=== PATIENT | female | born 1980 | race Caucasian/White ===

== ENCOUNTER 2016-12-08 21:49 | Emergency (ER) | payer BC, OTHER ==
[~2016-12-08] VITALS: Ht 162.6 cm; Wt 69.9 kg
[~2016-12-08 21:49] MED LIST: PRENTAB26 PO
[2016-12-08 21:57] VITALS: TEMP 36.9; Ht 162.6 cm; Wt 69.9 kg
[2016-12-08] MEDS ORDERED: LIDOCAINE HCL 2% VISC SOLN 20 ML UDC PO STA (23:16)
[2016-12-08] MEDS ORDERED: ALUMINUM/MAGNESIUM SUSP 30 ML UDC PO STA (23:16)
[2016-12-09 00:12] LABS: BASO % 0.3 %; BASO ABS # 0.03 K/uL (0-0.2); COMPLETE YES; EOS % 0.4 %; HEMATOCRIT 39.2 % (37-47); IG% 0.2 %; LYMPH % 16.2 %; LYMPH ABS # 1.73 K/uL (1.2-3.4); MEAN CELL VOLUME 87.3 fL (80-100); MEAN CORPUSCULAR HEMOGLOBIN 30.1 pg (25-34); MEAN CORPUSCULAR HGB CONC 34.4 g/dl (32-36); MONO % 6.5 %; NEUT % 76.4 %; PLATELET COUNT 329 K/uL (130-400); RED BLOOD COUNT 4.49 M/uL (4.2-5.4)
[2016-12-09 00:32] LABS: ALT/SGPT 21 U/L (12-78); AST/SGOT 8 U/L (15-37); BLOOD UREA NITROGEN 22 mg/dl (7-18); BUN/CREATININE RATIO 28.5 (10-20); CALCIUM 9.1 mg/dl (8.5-10.1); CARBON DIOXIDE 27 mmol/L (21-32); CHLORIDE 107 mmol/L (98-107); CREATININE 0.77 mg/dl (0.60-1.20); GLUCOSE 99 mg/dl (70-99); POTASSIUM 4.2 mmol/L (3.5-5.1); SODIUM 143 mmol/L (136-145)
[2016-12-09 00:42] LABS: ALKALINE PHOSPHATASE 104 U/L (45-117); CKMB/CK RATIO 0.6 (0-3.0)
--- NOTE | 2016-12-09 01:26 | EMERGENCY ROOM VISIT NOTE ---
History Report prepared by Ramsey: Chandu Crenshaw Under the Supervision of: Dr. Jaime Combs D.O. First contact with patient: 23:13 Chief Complaint: CHEST PAIN Stated Complaint: CHEST TIGHNESS/PRESSUE,L BRANCH BUNDLE BLOCK HX History of Present Illness The patient is a 36 year old female who presents to the Emergency Room with complaints of waxing and waning chest pain beginning about 3 hours ago. She describes the pain as a tightness, and like a balloon inflating. She locates the pain in her central chest and notes it goes to the back of her mouth. The patient has a history of a left bundle branch block and notes her current symptoms are the same as when she had the left bundle branch block. She was here a few months ago with heart palpitations which were thought to be related to a panic attack. The patient denies any history of reflux, but reports a family history of heart disease in all of her grandparents. Source of History: patient Onset: 3 hours ago Position: chest Quality: other (tightness) Timing: waxes/wanes Note: The patient notes the pain radiates up to her mouth. Review of Systems See HPI for pertinent positives & negatives. A total of 10 systems reviewed and were otherwise negative. Past Medical & Surgical Medical Problems: (1) 26 weeks gestation of (2) Hemorrhoid prolapse (3) Left flank pain (4) Normal labor (5) Other specified complication, antepartum (6) (7) SYMPTOMATIC PALPITATIONS (8) Thrombosed external hemorrhoid Family History Diabetes mellitus Heart disease Hypertension Kidney stones Social History Smoking Status: Former Smoker Alcohol Use: occasionally Drug Use: none Marital Status: Current/Historical Medications Scheduled Multivit/Min/Iron/Fol Ac/Pren ( Vitamin), 1 TAB PO DAILY Allergies Coded Allergies: Ergocalciferol (Verified Allergy, Mild, RASH, 12/08/16) Physical Exam Vital Signs Date Time Temp Pulse Resp B/P Pulse Ox O2 Delivery O2 Flow Rate FiO2 12/09/16 00:00 81 16 100 Room Air 12/08/16 23:23 Room Air 12/08/16 22:00 98 Room Air 12/08/16 21:57 36.9 84 18 141/81 99 Room Air Physical Exam CONSTITUTIONAL/VITAL SIGNS: Reviewed / noted above. GENERAL: Non-toxic in appearance. INTEGUMENTARY: Warm, dry, and [place]. HEAD: Normocephalic. EYES: without scleral icterus or trauma. ENT/OROPHARYNX: clear and moist. LYMPHADENOPATHY/NECK: Is supple without lymphadenopathy or meningismus. RESPIRATORY: Lungs clear and equal. CARDIOVASCULAR: Regular rate and rhythm. GI/ABDOMEN: Soft and nontender. No organomegaly or pulsatile mass. No rebound or guarding. Normal bowel sounds. EXTREMITIES: Warm and well perfused. BACK: No CVA tenderness. NEUROLOGICAL: Intact without focal deficits. PSYCHIATRIC: normal affect. MUSCULOSKELETAL: Normally developed with good muscle tone. Medical Decision & Procedures ER Provider Diagnostic Interpretation: Chest x-ray:per my interpretation is negative for acute disease. No pneumothorax or pneumonia. Laboratory Results 12/08/16 23:37 Red Blood Count 4.49, Mean Corpuscular Volume 87.3, Mean Corpuscular Hemoglobin 30.1, Mean Corpuscular Hemoglobin Concent 34.4, Mean Platelet Volume 9.0, Neutrophils (%) (Auto) 76.4, Lymphocytes (%) (Auto) 16.2, Monocytes (%) (Auto) 6.5, Eosinophils (%) (Auto) 0.4, Basophils (%) (Auto) 0.3, Neutrophils # (Auto) 8.18, Lymphocytes # (Auto) 1.73, Monocytes # (Auto) 0.70, Eosinophils # (Auto) 0.04, Basophils # (Auto) 0.03 12/08/16 23:37 Test 12/08/16 23:37 White Blood Count 10.70 K/uL (4.8-10.8) Red Blood Count 4.49 M/uL (4.2-5.4) Hemoglobin 13.5 g/dL (12.0-16.0) Hematocrit 39.2 % (37-47) Mean Corpuscular Volume 87.3 fL (80-100) Mean Corpuscular Hemoglobin 30.1 pg (25-34) Mean Corpuscular Hemoglobin Concent 34.4 g/dl (32-36) Platelet Count 329 K/uL (130-400) Mean Platelet Volume 9.0 fL (7.4-10.4) Neutrophils (%) (Auto) 76.4 % Lymphocytes (%) (Auto) 16.2 % Monocytes (%) (Auto) 6.5 % Eosinophils (%) (Auto) 0.4 % Basophils (%) (Auto) 0.3 % Neutrophils # (Auto) 8.18 K/uL (1.4-6.5) Lymphocytes # (Auto) 1.73 K/uL (1.2-3.4) Monocytes # (Auto) 0.70 K/uL (0.11-0.59) Eosinophils # (Auto) 0.04 K/uL (0-0.5) Basophils # (Auto) 0.03 K/uL (0-0.2) RDW Standard Deviation 39.7 fL (36.4-46.3) RDW Coefficient of Variation 12.3 % (11.5-14.5) Immature Granulocyte % (Auto) 0.2 % Immature Granulocyte # (Auto) 0.02 K/uL (0.00-0.02) Anion Gap 9.0 mmol/L (3-11) Est Creatinine Clear Calc Drug Dose 98.8 ml/min Estimated GFR () 116.8 Estimated GFR (Non- 100.7 BUN/Creatinine Ratio 28.5 (10-20) Calcium Level 9.1 mg/dl (8.5-10.1) Total Bilirubin 0.2 mg/dl (0.2-1) Direct Bilirubin < 0.1 mg/dl (0-0.2) Aspartate Amino Transf (AST/SGOT) 8 U/L (15-37) Alanine Aminotransferase (ALT/SGPT) 21 U/L (12-78) Alkaline Phosphatase 104 U/L (45-117) Total Creatine Kinase 77 U/L (26-192) Creatine Kinase MB 0.5 ng/ml (0.5-3.6) Creatine Kinase MB Ratio 0.6 (0-3.0) Troponin I < 0.015 ng/ml (0-0.045) Total Protein 8.0 gm/dl (6.4-8.2) Albumin 4.0 gm/dl (3.4-5.0) Thyroid Stimulating Hormone (TSH) 1.380 uIu/ml (0.300-4.500) Laboratory results as stated above per my review. Medications Administered Medications (Trade) Dose Ordered Sig/Dianna Route Start Time Stop Time Status Last Admin Dose Admin Al Hydroxide/Mg Hydroxide (Maalox Susp) 30 ml NOW STAT PO 12/08/16 23:16 12/08/16 23:18 DC 12/08/16 23:42 30 ML Lidocaine HCl (Viscous Lidocaine 2% Soln) 10 ml NOW STAT PO 12/08/16 23:16 12/08/16 23:18 DC 12/08/16 23:42 10 ML ECG Indication: chest pain Rate (beats per minute): 80 Rhythm: normal sinus Findings: no acute ischemic change, no ectopy ED Course 2314: Previous medical records were reviewed. The patient was evaluated in room A12A. A complete history and physical examination was performed. 2316: Ordered Lidocaine HCl 10 ml PO, and Maalox Susp 30 ml PO. 0130: On reevaluation, the patient is doing well. I discussed the results and findings with the patient. She verbalized agreement of the treatment plan. The patient was discharged home. Medical Decision the differential was considered includes acute myocardial infarction, acute coronary syndrome, myocarditis, pericarditis, pericardial effusions /tamponad, esophageal perforation, thoracic aortic dissection, pulmonary embolism, pneumonia, pneumothorax, pancreatitis, shingles, acute cholecystitis, perforated abdominal viscus. This is a 36-year-old female who presents to the ED with a chief complaint of tightness in her chest. She states that it started around 8 PM tonight. She states that felt like a bubble in her chest and radiated into her neck. She states that she has had similar symptoms when she had a left bundle branch block. Because of her history of this, she was concerned and came to the ED for evaluation. She denied any associated symptoms. No recent illness, fevers or chills or shortness of breath. Her vital signs are normal. Her physical exam was normal. CBC, complete metabolic panel, TSH and troponin were normal. EKG shows a normal sinus rhythm at a rate of 80 without ectopy or acute injury or bundle branch block. A chest x-ray was negative for acute disease. The patient was told the results of the test. She is felt to be stable for discharge and outpatient follow up. Impression Primary Impression: Substernal precordial chest pain Scribe Attestation The scribe's documentation has been prepared under my direction and personally reviewed by me in its entirety. I confirm that the note above accurately reflects all work, treatment, procedures, and medical decision making performed by me. Departure Information Dispostion Home / Self-Care Referrals RV. Lozada MD (PCP) Patient Instructions My [facility] Additional Instructions Follow-up with your doctor for further care and evaluation in 1-5 days if symptoms persist. Return to the emergency department for worsening or new symptoms or any concerns. You have been examined and treated today on an emergency basis only. This is not a substitute for, or an effort to provide, complete comprehensive medical care. It is impossible to recognize and treat all injuries or illnesses in a single emergency department visit. It is therefore important that you follow up closely with your doctor. Call as soon as possible for an appointment.
[2016-12-09 01:39] VITALS: BP 135/79; PULSE 83; O2SAT 100
--- NOTE | 2016-12-09 06:34 | DIAGNOSTIC IMAGING REPORT ---
CHEST ONE VIEW PORTABLE CLINICAL HISTORY: Fever, sepsis COMPARISON STUDY: 08/28/2016 FINDINGS: The cardiac and mediastinal contours are normal. There is no evidence of focal pulmonary consolidation. There is no evidence of failure. No pleural effusions are visualized.[ IMPRESSION: No active disease in the chest. Electronically signed by: Jose Orta M.D. 12/09/2016 6:33 AM Dictated Date/Time: 12/09/2016 6:32 AM
== END 2016-12-09 01:40 | disposition home or self-care (01) ==
LOC: C.EDB 21:50 → C.EDA 12-09 01:40
DX: R07.2 Precordial pain (principal); Z83.3 Family history of diabetes mellitus; Z82.49 Family history of ischemic heart disease and other diseases of the circulatory system; Z87.891 Personal history of nicotine dependence

== ENCOUNTER → 2016-12-19 | Outpatient (CLI) | payer BC ==
--- NOTE | 2016-12-25 06:58 | CODING QUERY MEDICAL NECESSITY ---
CQSUPPORTING DIAGNOSIS NEEDED A supporting diagnosis is required for the test/procedure performed on this patient in order for us to be reimbursed by the patient's insurance. Please provide a supporting diagnosis for the following test/procedure listed below next to the test name along with your signature. *If there is no additional diagnosis for this patient that would support the following test/procedure please document that below next to the test/procedure. Test(s)/Procedure(s) that require a supporting diagnosis: DOS 12/19/16 VITAMIN B12 Provider Signature: Date: Thank you Yue Pineda [employer] Information [employer] Once completed, please kindly fax back to [phone] For questions please call [phone]
== END | disposition home or self-care (01) ==
LOC: C.LAB1850 11:38
PROVIDERS: ATTEND Internal Medicine
DX: E55.9 Vitamin D deficiency, unspecified (principal); R00.2 Palpitations; R53.83 Other fatigue

== ENCOUNTER 2017-12-25 08:39 | Emergency (ER) | payer BC ==
[~2017-12-25] VITALS: Ht 162.6 cm; Wt 68.6 kg
[2017-12-25 08:42] VITALS: TEMP 36.5; O2SAT 100; Ht 162.6 cm; Wt 68.6 kg
[2017-12-25 09:16] VITALS: O2SAT 97
[2017-12-25 09:22] LABS: BASO % 0.5 %; BASO ABS # 0.05 K/uL (0-0.2); HEMOGLOBIN 14.2 g/dL (12.0-16.0); IG# 0.02 K/uL (0.00-0.02); LYMPH % 22.9 %; LYMPH ABS # 2.34 K/uL (1.2-3.4); MEAN CELL VOLUME 88.7 fL (80-100); MEAN CORPUSCULAR HEMOGLOBIN 30.7 pg (25-34); MEAN CORPUSCULAR HGB CONC 34.6 g/dl (32-36); MEAN PLATELET VOLUME 8.9 fL (7.4-10.4); MONO % 7.5 %; MONO ABS # 0.76 K/uL (0.11-0.59); NEUT % 67.9 %; NEUT ABS # 6.93 K/uL (1.4-6.5); PLATELET COUNT 302 K/uL (130-400); RED CELL DISTRIBUTION WIDTH CV 12.3 % (11.5-14.5); RED CELL DISTRIBUTION WIDTH SD 39.7 fL (36.4-46.3)
[2017-12-25] MEDS ORDERED: ESCI1TAB6 PO (09:24)
[2017-12-25] MEDS ORDERED: MULTTAB58 PO (09:24)
--- NOTE | 2017-12-25 09:41 | DIAGNOSTIC IMAGING REPORT ---
CHEST ONE VIEW PORTABLE CLINICAL HISTORY: Atypical chest pain COMPARISON STUDY: 12/08/2016 FINDINGS: The cardiac and mediastinal contours are normal. There is no evidence of focal pulmonary consolidation. There is no evidence of failure. No pleural effusions are visualized.[ No pneumothorax is visualized. IMPRESSION: No active disease in the chest. Electronically signed by: Jose Orta M.D. 12/25/2017 9:40 AM Dictated Date/Time: 12/25/2017 9:40 AM
[2017-12-25 10:01] LABS: BLOOD UREA NITROGEN 20 mg/dl (7-18); CALCIUM 8.9 mg/dl (8.5-10.1); CARBON DIOXIDE 21 mmol/L (21-32); GLUCOSE 90 mg/dl (70-99)
[2017-12-25 10:10] LABS: POTASSIUM 4.2 mmol/L (3.5-5.1); SODIUM 138 mmol/L (136-145)
[2017-12-25 10:15] LABS: PHOSPHORUS 1.4 mg/dl (2.5-4.9)
[2017-12-25] MEDS ORDERED: POT PHOSPHATE MONOBASIC W/ SOD TAB PO STA (10:18)
[2017-12-25 10:39] VITALS: PULSE 94
[2017-12-25 11:02] VITALS: BP 136/79
[2017-12-25] MEDS ORDERED: KPH PO (11:18)
--- NOTE | 2017-12-25 11:18 | EMERGENCY ROOM VISIT NOTE ---
History Report prepared by Ramsey: David Mojica Under the Supervision of: Dr. Miguel Mckoy M.D. First contact with patient: 08:47 Chief Complaint: CARDIAC ASSESSMENT Stated Complaint: CARDIAC EVENT Nursing Triage Summary: patient states she work up this morning and after making kids breakfast she developed heart palpitations. "It was like my heart was skipping a beat." patient states she has anxiety and takes lexapro for anxiety. states she did not take lexapro today. patient states heart palpitations subsided enroute to ER but states once heart palpitations subside she began to hyperventilate, c/o numbness and tingling in arms, hands, legs and mouth History of Present Illness The patient is a 37 year old white female with a past medical history of hemorrhoid prolapse and kidney pain who presents to the Emergency Room with complaints of sudden onset chest palpitations that began at 0730, 1.5 hours ago. The patient states that "I could feel like my heart stopped beating for a second and then a really hard beat." She has felt this before, but notes that it normally its just a split second. This episode lasted for about an hour, but she feels like she is improving. She denies any chest pain or shortness of breath, but notes that she does have anxiety and panic attacks when these palpitations occur. She did feel like she began to hyperventilate following this episode. The patient did experience some numbness/tingling in her arms and legs, and subsequently lost the ability to move them. The patient notes that she does have a history of LBBB and follows with Dr. Gisselle mojica. 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 A total of ten systems were reviewed and were otherwise negative. Past Medical & Surgical Medical Problems: (1) 26 weeks gestation of (2) Hemorrhoid prolapse (3) Left flank pain (4) Normal labor (5) Other specified complication, antepartum (6) (7) SYMPTOMATIC PALPITATIONS (8) Thrombosed external hemorrhoid Family History Diabetes mellitus Heart disease Hypertension Kidney stones Social History Smoking Status: Never Smoker Alcohol Use: occasionally Drug Use: none Marital Status: Current/Historical Medications Scheduled Escitalopram Oxalate (Lexapro), 5 MG PO QAM Multiple Vitamin (Multivitamin), 1 TAB PO QPM Potassium Phosphate Monobasic (K-Phos), 2 TAB PO QID Scheduled PRN Lorazepam (Ativan), 0.5 MG PO Q12H PRN for Anxiety Allergies Coded Allergies: Ergocalciferol (Verified Allergy, Mild, RASH, 12/25/17) Physical Exam Vital Signs Date Time Temp Pulse Resp B/P (MAP) Pulse Ox O2 Delivery O2 Flow Rate FiO2 12/25/17 11:02 136/79 12/25/17 10:39 94 21 12/25/17 10:09 97 13 12/25/17 09:39 102 14 12/25/17 09:24 98 12/25/17 09:16 97 Room Air 12/25/17 08:42 98 Room Air 12/25/17 08:42 36.5 96 20 132/84 100 Room Air Physical Exam GENERAL: Awake, alert, well-appearing, tearful/anxious appearing. Wearing glasses. HENT: Normocephalic, atraumatic. EYES: Normal conjunctiva. Sclera non-icteric. NECK: Supple. No nuchal rigidity. FROM. RESPIRATORY: CTAB, no rhonchi, wheezing, crackles CARDIAC: RRR, no MRG ABDOMEN: Soft, NTND, BS+ MSK: No chest wall TTP, no LE edema NEURO: GCS 15, CN 2-12 intact, moves all 4s on command SKIN: No rash or jaundice noted. Medical Decision & Procedures ER Provider Diagnostic Interpretation: Radiology results as stated below per my review and radiologist interpretation: CHEST ONE VIEW PORTABLE CLINICAL HISTORY: Atypical chest pain COMPARISON STUDY: 12/08/2016 FINDINGS: The cardiac and mediastinal contours are normal. There is no evidence of focal pulmonary consolidation. There is no evidence of failure. No pleural effusions are visualized.[ No pneumothorax is visualized. IMPRESSION: No active disease in the chest. Electronically signed by: Jose Orta M.D. 12/25/2017 9:40 AM Dictated Date/Time: 12/25/2017 9:40 AM Laboratory Results 12/25/17 09:10 Red Blood Count 4.62, Mean Corpuscular Volume 88.7, Mean Corpuscular Hemoglobin 30.7, Mean Corpuscular Hemoglobin Concent 34.6, Mean Platelet Volume 8.9, Neutrophils (%) (Auto) 67.9, Lymphocytes (%) (Auto) 22.9, Monocytes (%) (Auto) 7.5, Eosinophils (%) (Auto) 1.0, Basophils (%) (Auto) 0.5, Neutrophils # (Auto) 6.93, Lymphocytes # (Auto) 2.34, Monocytes # (Auto) 0.76, Eosinophils # (Auto) 0.10, Basophils # (Auto) 0.05 12/25/17 09:10 Test 12/25/17 09:10 White Blood Count 10.20 K/uL (4.8-10.8) Red Blood Count 4.62 M/uL (4.2-5.4) Hemoglobin 14.2 g/dL (12.0-16.0) Hematocrit 41.0 % (37-47) Mean Corpuscular Volume 88.7 fL (80-100) Mean Corpuscular Hemoglobin 30.7 pg (25-34) Mean Corpuscular Hemoglobin Concent 34.6 g/dl (32-36) Platelet Count 302 K/uL (130-400) Mean Platelet Volume 8.9 fL (7.4-10.4) Neutrophils (%) (Auto) 67.9 % Lymphocytes (%) (Auto) 22.9 % Monocytes (%) (Auto) 7.5 % Eosinophils (%) (Auto) 1.0 % Basophils (%) (Auto) 0.5 % Neutrophils # (Auto) 6.93 K/uL (1.4-6.5) Lymphocytes # (Auto) 2.34 K/uL (1.2-3.4) Monocytes # (Auto) 0.76 K/uL (0.11-0.59) Eosinophils # (Auto) 0.10 K/uL (0-0.5) Basophils # (Auto) 0.05 K/uL (0-0.2) RDW Standard Deviation 39.7 fL (36.4-46.3) RDW Coefficient of Variation 12.3 % (11.5-14.5) Immature Granulocyte % (Auto) 0.2 % Immature Granulocyte # (Auto) 0.02 K/uL (0.00-0.02) Anion Gap 8.0 mmol/L (3-11) Est Creatinine Clear Calc Drug Dose 83.0 ml/min Estimated GFR () 96.0 Estimated GFR (Non- 82.8 BUN/Creatinine Ratio 22.1 (10-20) Calcium Level 8.9 mg/dl (8.5-10.1) Phosphorus Level 1.4 mg/dl (2.5-4.9) Magnesium Level 2.2 mg/dl (1.8-2.4) Troponin I < 0.015 ng/ml (0-0.045) Pro-B-Type Natriuretic Peptide 117 pg/ml (0-450) Thyroid Stimulating Hormone (TSH) 1.260 uIu/ml (0.300-4.500) Chemistry Specimen Hemolysis Laboratory results reviewed by me Medications Administered Medications (Trade) Dose Ordered Sig/Dianna Route Start Time Stop Time Status Last Admin Dose Admin Potassium/ Phosphorus/Sodium (Phospha 250 Neutral 155-852-130 Mg) 2 tab ONE STAT PO 12/25/17 10:18 12/25/17 10:19 DC 12/25/17 11:03 2 TAB ECG Per My Interpretation Indication: palpitations Rate (beats per minute): 101 Rhythm: sinus tachycardia Findings: other (Wide QRS, LBBB pattern, No Sgarbossa criteria) Comparison ECG Date: March 2012 Change: previous EKG shows intermittent LBBB. ED Course 0851: The patient was evaluated in room B10. A complete history and physical exam was performed. 1021: I checked on the patient. I updated her on the findings of the case. She is feeling a lot better. 1112: I reevaluated the patient. Discussed results and discharge instructions: She verbalized understanding and agreement. The patient is ready for discharge. Medical Decision The patient is a 37 year old white female with a past medical history of hemorrhoid prolapse and kidney pain who presents to the Emergency Room with complaints of sudden onset chest palpitations that began at 0730, 1.5 hours ago. Nursing notes reviewed. Ancillary studies and prior records reviewed. Differential diagnosis: Etiologies such as premature contractions, electrolyte abnormality, cardiac dysrhythmia, thyroid dysfunction, pulmonary embolism, infection, gastrointestinal, as well as others were entertained. Patient was seen and evaluated the bedside. Patient did complain of approximately 30-45 minutes of palpitations and some mild chest discomfort. Patient denies any exertional symptoms. No prior history of DVT or PE. Patient does not use OCPs that she was taken off this due to concern for pseudotumor cerebri. The patient denies any active chest pains or shortness of breath. No recent prolonged car or plane travel. Patient has no lower externally swelling, no recent hospitalization, no recent fracture. Patient had blood work completed, EKG, troponin, chest x-ray. Patient's chest x -ray is clear. Patient troponin is undetectable. Patient does have a left bundle branch block that is noted on her EKG. This is seen intermittently in EKGs from 2012. Per the patient the patient is seen her primary living nurse Dr. Pitts was worked up in the past with a Holter monitor stress test, and echocardiogram which have all been negative. I did discuss that this may need to be revisited. Patient's blood work does show a low phos. Patient was repleted p.o. Patient was also given a prescription for this and told to supplement in her diet and/or with the supplement that she could discuss with the pharmacy staff when she picks up her prescriptions. Patient would PERC in given her intermittent tachycardia; however she would have a Wells of 1 which makes her less likely PE. Less likely ACS given her nonischemic EKG and negative troponin. I did discuss the need to follow-up for anxiety. Upon reassessment the patient was feeling much improved. Patient was able to tolerate p.o. without issue. Patient was deemed suitable for outpatient follow-up and treatment at this time. Patient was given strict follow-up, discharge, and return precautions. All questions were answered. Patient was deemed suitable for outpatient follow- up at this time. Patient agreed with the plan of care and was safely discharged home. Medication Reconcilliation Current Medication List: was personally reviewed by me Blood Pressure Screening Patient's blood pressure: Normal blood pressure Impression Primary Impression: Palpitations Additional Impressions: LBBB (left bundle branch block) Hypophosphatemia Scribe Attestation The scribe's documentation has been prepared under my direction and personally reviewed by me in its entirety. I confirm that the note above accurately reflects all work, treatment, procedures, and medical decision making performed by me. Departure Information Dispostion Home / Self-Care Prescriptions Lorazepam (ATIVAN) 1 Mg Tab 0.5 MG PO Q12H Y for Anxiety, #5 TAB Prov: Miguel Mckoy M.D. 12/25/17 Potassium Phosphate Monobasic (K-PHOS) 500 Mg Tab 2 TAB PO QID for 2 Days, #16 TAB Prov: Miguel Mckoy M.D. 12/25/17 Referrals RV. Lozada MD (PCP) Patient Instructions Anxiety Body Response, Hypophosphatemia Dc, My [facility] Additional Instructions Please return to the emergency department if you have worsening or recurrent symptoms not amenable to at-home treatment. Please call for a follow-up appointment with her primary care physician. Please take your medications as prescribed. If you have other concerns and/or complaints please feel free to also call your primary care physician's office or return the ED for further evaluation, management, and treatment. You may take 800 mg Ibuprofen every 6 hours as needed for pain/fever with food unless told by your physician not to take NSAIDs. You may take tylenol 1000 mg every 6 hours as needed for pain/fever unless told by your physician to not take it or have liver problems. You may take motrin and tylenol separately or at the same time. Take your medications as prescribed. Please discuss a phosphate supplement with the pharmacist. You have been examined and treated today on an emergency basis only. This is not a substitute for, or an effort to provide, complete comprehensive medical care. It is impossible to recognize and treat all injuries or illnesses in a single emergency department visit. It is therefore important that you follow up closely with [facility], your PCP, and/or your specialist(s). Call as soon as possible for an appointment. Thank you for your time and consideration. I look forward to speaking with you again soon. Please don't hesitate to call us if you have any questions. Problem Qualifiers
[2017-12-25] MEDS ORDERED: ATV/1 PO (11:21)
== END 2017-12-25 11:30 | disposition home or self-care (01) ==
LOC: C.EDB 08:40
DX: R00.2 Palpitations (principal); I44.7 Left bundle-branch block, unspecified; E83.39 Other disorders of phosphorus metabolism; F41.9 Anxiety disorder, unspecified; Z83.3 Family history of diabetes mellitus; Z82.49 Family history of ischemic heart disease and other diseases of the circulatory system; Z84.1 Family history of disorders of kidney and ureter; Z79.899 Other long term (current) drug therapy; Z88.8 Allergy status to other drugs, medicaments and biological substances

== ENCOUNTER → 2018-01-12 | Outpatient (CLI) | payer BC ==
[~2018-01-12] MED LIST changes: +ESCI1TAB6 PO; +KPH PO; +MULTTAB58 PO; -PRENTAB26 PO
== END | disposition home or self-care (01) ==
LOC: C.PAPS 18:14
PROVIDERS: ATTEND Obstetrics & Gynecology
DX: Z01.419 Encounter for gynecological examination (general) (routine) without abnormal findings (principal)